=== PATIENT | female | born 1940 | race Caucasian/White ===

== ENCOUNTER 2016-10-14 08:56 | Emergency (ER) | payer MEDICARE, OTHER ==
[2016-10-14 09:33] LABS: BASOPHILS 0.3 % (0.0-2.0); EOSINOPHILS 0.1 % (0.0-6.0); HEMATOCRIT 40.5 % (36.0-48.0); HEMOGLOBIN 13.7 g/dL (12.0-16.0); LYMPHOCYTES 13.8 % (20.0-40.0); LYMPHOCYTES# 0.7 X 10^3uL (0.8-3.8); MEAN CELL VOLUME 91.9 fL (80.0-100.0); MEAN CORPUS. HGB CONCENTRATION 33.8 g/dL (32.0-36.0); MEAN CORPUSCULAR HEMOGLOBIN 31.1 pg (29.0-35.0); MEAN PLATELET VOLUME 8.7 fL (7.4-10.4); MONOCYTES 8.1 % (2.0-10.0); MONOCYTES# 0.4 X 10^3uL (0.2-1.0); NEUTROPHILS# 3.9 X 10^3uL (2.6-6.7); PLATELET COUNT 159 X 10^3uL (130-440); RED CELL DISTRIBUTION WIDTH 13.5 % (11.5-14.5)
[2016-10-14 09:39] LABS: NEUTROPHILS 77.7 % (54.0-75.0)
[2016-10-14 09:48] LABS: ALBUMIN 4.3 g/dL (3.5-5.0); ALKALINE PHOSPHATASE 70 U/L (38-126); ALT 26 U/L (9-52); AST 27 U/L (14-36); BILIRUBIN, TOTAL 0.8 mg/dL (0.2-1.3); BLOOD UREA NITROGEN 21 mg/dL (7-17); CALCIUM 10.8 mg/dL (8.4-10.2); CHLORIDE 101 mmol/L (98-107); EST GLOMERULAR FILTRATION RATE > 60 mL/min; GLUCOSE 93 mg/dL (70-100); LIPASE 158 U/L (23-300); POTASSIUM 4.2 mmol/L (3.5-5.1); SODIUM 136 mmol/L (137-145); TOTAL PROTEIN 7.5 g/dL (6.3-8.2)
[2016-10-14] MEDS ORDERED: ONDANSETRON HCL 4 MG/2 ML VIAL ONE (09:52)
[2016-10-14] MEDS ORDERED: NORMAL SALINE 500 ML IV ONE (09:52)
--- NOTE | 2016-10-14 11:42 | CT REPORT ---
HISTORY: Abdominal pain. COMPARISON: None. TECHNIQUE: This examination was performed using automated exposure control, adjustment of mA or kV according to patient size, and/or use of iterative reconstruction technique. Axial contiguous images of the abdome n and pelvis were obtained without oral or IV contrast, coronal reformat images also performed. FINDINGS: LUNGS: There are dependent airspace opacities in the lower lobes bilaterally, most consistent with nava bsegmental atelectasis. The heart is enlarged. There is a large hiatal hernia. Hepatobiliary:No focal hepatic lesions are seen. The portal vein enhances normally. There is no intra hepatic biliary ductal dilatation. The gallbladder is incompletely distended. Spleen: Normal in size and radiographic appearance. Pancreas: No focal pancreatic lesion or pancreatic ductal dilatation. Adrenals:Unremarkable. Kidneys: The kidneys are normal in size bilaterally. There is no evidence of hydroureteronephrosis or renal/ureteral calculus. There are 2 discrete left renal cortical cysts measuring up to 1.9 cm in si ze. Peritoneum: There is no evidence of free fluid or free air. There is diastases of the rectus abdomini s, without evidence of abdominal wall hernia. Vessels: Moderate atherosclerotic disease affects abdominal aorta and its branches. The IVC appears u nremarkable. Lymph nodes: There is no lymphadenopathy. Bowel: The stomach is incompletely distended. The small bowel appears unremarkable. The appendix is a bsent, consistent with prior appendectomy . There is well-formed stool throughout the colon. There is diverticulosis of the sigmoid and descending colon without CT evidence of diverticulitis. No focal b owel wall thickening is seen. Pelvis: The bladder appears unremarkable, without intraluminal mass or calculus. There is a small foc us of gas within the bladder which may reflect recent instrumentation or less likely underlying cysti tis. The uterus and ovaries are absent. Bones: There are degenerative changes noted in the spine. There is vertebral deformity of the T8, T12 and L2 vertebral bodies suggesting old compression fracture. No blastic or lytic lesions are identif ied. There are healed fractures of the visualized superior pubic rami bilaterally, old, variably heal ed fractures of the left L1, L2, L3 and L4 transverse processes and multiple healed right-sided rib f ractures. No acute rib fracture is seen. The soft tissues appear unremarkable. IMPRESSION: 1. Diverticulosis of the colon without CT evidence of diverticulitis. 2. Air within the bladder may reflect recent instrumentation. Underlying cystitis is considered less likely. Correlation with patient history and urinalysis is recommended. 3. No evidence of renal or ureteral calculus. 4. Large hiatal hernia. Final Electronic Signature: This report was electronically signed by Samuel Newman MD on 10/15/19 17 11:40 AM. shira /
[2016-10-14 11:48] LABS: URINE MUCUS NONE SEEN (Up to 25%); URINE WBC NONE SEEN (0-4/hpf)
[2016-10-14 11:59] LABS: URINE APPEARANCE CLEAR; URINE COLOR YELLOW; URINE LEUKOCYTE ESTERASE NEGATIVE (NEGATIVE); URINE NITRITE NEGATIVE (NEGATIVE); URINE SPECIFIC GRAVITY 1.015 (0.001-1.035)
[2016-10-14 12:00] LABS: URINE BACTERIA NONE SEEN (<10/hpf); URINE BILIRUBIN NEGATIVE (NEGATIVE); URINE BLOOD 10 Ery/uL (1+) (NEGATIVE); URINE GLUCOSE NORMAL (NEGATIVE); URINE KETONE NEGATIVE (NEGATIVE); URINE PROTEIN NEGATIVE (NEG - TRACE); URINE RBC 0-5/hpf (0-5/hpf); URINE SQUAMOUS EPITHELIAL CELL 0-5/hpf (<= 15/hpf); URINE UROBILINOGEN 0.2mg/dL (Normal) (NEG-1mg/dL)
[2016-10-14 12:01] LABS: URINE SPERM NONE SEEN
--- NOTE | 2016-10-14 12:09 | ER PHYSICIAN DOCUMENTATION ---
Physician Documentation [place] [facility] Name:Carri Blas Age:75 yrs Sex:Female :1940 Arrival Date:10/14/2016 Time:08:56 Bed4 Private MD: Livan Flower Disposition: 10/14 11:30 Chart complete. cd Disposition: 10/14/16 11:55 Discharged to Home/Self Care. Impression: Abdominal Pain, Unspecified, Dehydration, Bladder Infection (UTI) - : Possible, Culture pending. - Condition is Fair. - Discharge Instructions: BLADDER INFECTION, Female (Adult), DEHYDRATION (6y-Adult), Abdomen - ABDOMINAL PAIN, Unknown Cause, (Female). - Prescriptions for Macrodantin 100 mg Oral Capsule - take 1 capsule by ORAL route every 6 hours for 10 days; 40 capsule. Hydrocodone- Acetaminophen 5-325 mg Oral - take 1 tablet by ORAL route every 6 hours As needed; 12 tablet. - Medical Reconciliation form form. - Follow up: Alysa Roth MD; When: 2 - 3 days; Reason: Recheck today's complaints, Continuance of care. - Problem is new. - Symptoms have improved. - Notes: Drink 1 - 2 quarts of water every day to stay hydrated. TAke MAcrodantin 100mg by mouth every 6 hours for 10 days. Follow up with Dr. Roth (or covering physician) in 2 - 3 days for recheck. Take Hydrocodone 1 tab by mouth with food every 6 hours as needed for pain... HPI: 09:00 This 75 yrs old Female presents to ER via Private Vehicle with complaints of cd Abdominal Pain. 09:00 The patient presents with abdominal pain right lower quadrant. Onset: The cd symptoms/episode began/occurred gradually, 3 day(s) ago. The symptoms do not radiate. Associated signs and symptoms: Pertinent positives: anorexia, nausea, Pertinent negatives: constipation, diarrhea, dysuria, fever, shortness of breath, vomiting, vomiting blood. The symptoms are described as achy, constant. Severity of pain: At its worst the pain was moderate in the emergency department the pain is unchanged. Risk factors for AAA: none. The patient has not experienced similar symptoms in the past. Historical: - Allergies: Amitriptyline; - Home Meds: 1. losartan oral 2. areds2 3. tolterodine oral 4. Keppra Oral 5. pramipexole oral 6. Aspirin Oral 7. Vayacog oral 8. Estradiol Oral 9. Simvastatin Oral 10. pantoprazole oral 11. Hyoscyamine Sulfate SL 12. Atenolol Oral - PMHx: RENAL DISEASE; DIVERTICULITIS; ATRIAL FIB; aortic valve disorder; seizure disorder; ANXIETY; pulmonary embolism; hyperparathyroidism; polymyalgia rhuematica; pulminary hypertention; - PSHx: small bowel resection; KNEE SURGERY; HYSTERECTOMY; TONSILLECTOMY; - Tetanus: unknown. - Ebola Screening: : Patient denies exposure to infectious person. Patient denies travel to an Ebola-affected area in the 21 days before illness onset. . - Social history: Smoking status: unknown if patient ever smoked tobacco. ROS: 09:00 ENT: Negative for injury, pain, epistaxis and discharge. cd Neck: Negative for injury, pain, stiffness and swelling. Cardiovascular: Negative for chest pain, palpitations, edema and pleuritic pain. Respiratory: Negative for shortness of breath, dyspnea on exertion, cough, sputum production, wheezing, hemoptysis and pleuritic chest pain. Back: Negative for injury, pain or muscle spasms. : Negative for injury, bleeding, discharge, dysuria, frequency, urgency and swelling. MS/Extremity: Negative for injury, deformity, edema, calf tenderness, pain or coldness. Skin: Negative for injury, rash, itching and discoloration. 09:00 Neuro: Negative for headache, weakness, numbness, tingling, and seizure. cd 09:00 Constitutional: Positive for poor PO intake, Negative for chills, fever. 09:00 Abdomen/GI: Positive for abdominal pain, nausea, anorexia, Negative for vomiting, diarrhea, constipation, abdominal distension, hematemesis, black/tarry stool, rectal bleeding. 09:00 All other systems are negative. Exam: Head/Face: Normocephalic, atraumatic. ENT: Nares patent. No nasal discharge, no septal abnormalities noted. Tympanic membranes are normal and external auditory canals are clear. Oropharynx with no redness, swelling, or masses, exudates, or evidence of obstruction, uvula midline. Mucous membranes dry Neck: Trachea midline, no thyromegaly or masses palpated, and no cervical lymphadenopathy. Supple, full range of motion without nuchal rigidity, or vertebral point tenderness. No Meningismus. Chest/axilla: Normal chest wall appearance and motion. Nontender with no deformity. No lesions are appreciated. Back: No spinal tenderness. No costovertebral tenderness. Full range of motion. Skin: Warm, dry with normal turgor. Normal color with no rashes, no lesions, and no evidence of cellulitis. MS/ Extremity: Pulses equal, no cyanosis. Neurovascular intact. Full, normal range of motion. 09:15 Neuro: Awake and alert, GCS 15, oriented to person, place, time, and situation. cd Cranial nerves II-XII grossly intact. Motor strength 5/5 in all extremities. Sensory grossly intact. Cerebellar exam normal. Normal gait. 09:15 Constitutional: The patient appears alert, awake, non-diaphoretic, non-toxic, well developed, well nourished, in obvious distress, mildly distressed. 09:15 Cardiovascular: Rate: bradycardic, Rhythm: regular, Pulses: no pulse deficits are appreciated, Heart sounds: normal, Edema: is not appreciated. 09:15 Respiratory: the patient does not display signs of respiratory distress, Respirations: normal, no acute changes, Breath sounds: are normal, clear throughout. 09:15 Abdomen/GI: Inspection: abdomen appears normal, Bowel sounds: active, Palpation: mild abdominal tenderness, in the right lower quadrant, mass, is not appreciated, rebound tenderness, is not appreciated, voluntary guarding, is not appreciated, involuntary guarding, is not appreciated, no appreciated organomegaly, Indicators: McBurney's point is not tender, Wilson's sign is negative, Patient reports she has had a SBO in the past and had 8 cm of small bowel and her appendix removed. She has not had a SBO since that time.. Vital Signs: 09:25 BP 201 / 79 (auto/); st 09:29 Pulse 53; Temp 98.2; Pulse Ox 95% ; Pain 6/10; st 09:58 Pain 4/10; st 10:04 BP 196 / 77 (auto/); st 10:04 Pulse 59; Pulse Ox 91% ; st 11:15 BP 179 / 61 (auto/); st 11:19 Pulse 54; Pulse Ox 96% ; st 11:30 BP 179 / 68 (auto/); st 11:34 Pulse 53; Pulse Ox 97% ; Pain 0/10; st 11:34 pt has pain with movment. st [place] Coma Score: 09:15 Eye Response: spontaneous(4). Verbal Response: oriented(5). Motor Response: obeys cd commands(6). Total: 15. MDM: 09:05 Data interpreted: Pulse oximetry: on room air is 97 %. Interpretation: normal. cd 09:15 Differential diagnosis: bowel obstruction, cholecystitis, Cholelithiasis, cd diverticulitis, Irritable bowel syndrome, Mesenteric ischemia or infarction, non-specific abd pain, pancreatitis, Pyelonephritis, Ureterolithiasis, urinary tract infection. 09:29 Patient medically screened. cd 11:30 Counseling: I had a detailed discussion with the patient and/or guardian regarding: the cd historical points, exam findings, and any diagnostic results supporting the discharge/admit diagnosis, lab results, radiology results, the need for outpatient follow up, for a recheck, with the patient's primary care provider, to return to the emergency department if symptoms worsen or persist or if there are any questions or concerns that arise at home. Response to treatment: the patient's symptoms have resolved after treatment, the patient's pain is gone, the patient's condition has returned to base line, the patient is now symptom free, patient is well hydrated. and as a result, I will discharge patient. 11:45 Data reviewed: vital signs, nurses notes, old medical records, lab test result(s), cd radiologic studies, CT scan, and as a result, I will discharge patient, administer IV fluids, NS bolus, NS maintenence, prescribe pain medication, Dilaudid. 10/14 09:40 Order name: CBC AUTO DIF, MDIF/RMOR IF IND; Complete Time: 10:21 EDMS 10/14 10:21 Interpretation: Normal. 10/14 09:49 Order name: BASIC METABOLIC PANEL; Complete Time: 10:21 EDMS 10/14 10:21 Interpretation: Normal. 10/14 09:49 Order name: HEPATIC PANEL; Complete Time: 10:21 EDMS 10/14 10:21 Interpretation: Normal. 10/14 09:49 Order name: LIPASE; Complete Time: 10:21 EDMS 10/14 10:21 Interpretation: Normal. 10/14 12:01 Order name: UA W/ MICRO -CULTURE IF IND; Complete Time: 12:03 EDMS 10/14 12:03 Interpretation: Normal Except: Hematuria. cd 10/14 11:44 Order name: CAT SCAN; ABD/[place] [id number]; Complete Time: 12:03 EDMS 10/15 16:20 Interpretation: Normal Except: Small amt of air in the bladder. Diverticulosis. Large cd HH See Rad Report. 10/14 11:27 Order name: Oxygen; Complete Time: 11:27 st Dispensed Medications: 09:43 Drug: NS 0.9% 500 ml; Route: IV; Rate: bolus; Site: left forearm; st 11:02 Follow up: IV Status: Completed infusion; IV Intake: 500ml st 09:43 Not Given (Patient Refused): Zofran 4 mg IVP once over [address] 09:43 Drug: Dilaudid 0.5 mg; Route: IVP; Site: left forearm; st 09:58 Follow up: Response: Pain is decreased st 10:28 Drug: Dilaudid 0.25 mg; Route: IVP; Site: left forearm; st 12:08 Follow up: Response: Pain is decreased st Point of Care Testing: Urine Dip: 10:29 pH: 5.0; ; Specific [place]: 1.005; Ketones: Negative; Glucose: Negative; Protein: st Negative; Leukocytes: Negative; Nitrite: Negative ; Blood: Small (+); Bilirubin: Negative ; Urobilinogen: Normal Signatures: Asha Ruiz, Livan Luther RN, MD MD cd
--- NOTE | 2016-10-14 12:09 | ER NURSING DOCUMENTATION ---
Nurse's Notes [facility] Name:Carri Blas Age:75 yrs Sex:Female :1940 Arrival Date:10/14/2016 Time:08:56 Bed4 Private MD: Diagnosis:Abdominal Pain, Unspecified;Dehydration;Bladder Infection (UTI)-: Possible, Culture pending Presentation: 10/14 08:59 Acuity: MARYBETH 3 st 09:20 Presenting complaint: Patient states: Pt has had RLQ pain for a few days that is st getting worst. Transition of care: Home. 09:20 Method Of Arrival: Private Vehicle st Triage Assessment: 09:00 General: Appears uncomfortable, Behavior is cooperative. Pain: Complains of pain in st right lower quadrant Pain currently is 6 out of 10 on a pain scale. Pain began 2-3 days ago Aggravated by movement. Cardiovascular: No deficits noted. Respiratory: No deficits noted. GI: Abdomen is flat, non- distended Abd is soft X 4 quads Abdomen is tender to palpation in suprapubic area. Historical: - Allergies: Amitriptyline; - Home Meds: 1. losartan oral 2. areds2 3. tolterodine oral 4. Keppra Oral 5. pramipexole oral 6. Aspirin Oral 7. Vayacog oral 8. Estradiol Oral 9. Simvastatin Oral 10. pantoprazole oral 11. Hyoscyamine Sulfate SL 12. Atenolol Oral - PMHx: RENAL DISEASE; DIVERTICULITIS; ATRIAL FIB; aortic valve disorder; seizure disorder; ANXIETY; pulmonary embolism; hyperparathyroidism; polymyalgia rhuematica; pulminary hypertention; - PSHx: small bowel resection; KNEE SURGERY; HYSTERECTOMY; TONSILLECTOMY; - Tetanus: unknown. - Ebola Screening: : Patient denies exposure to infectious person. Patient denies travel to an Ebola-affected area in the 21 days before illness onset. . - Social history: Smoking status: unknown if patient ever smoked tobacco. Screenin:06 Infectious Disease Risk None. Abuse screen: Denies threats or abuse. Denies injuries st from another. pt feels safe at home. Nutritional screening: No deficits noted. Assessment: 09:58 General: pt resting quietly.. st Vital Signs: 09:25 BP 201 / 79 (auto/); st 09:29 Pulse 53; Temp 98.2; Pulse Ox 95% ; Pain 6/10; st 09:58 Pain 4/10; st 10:04 BP 196 / 77 (auto/); st 10:04 Pulse 59; Pulse Ox 91% ; st 11:15 BP 179 / 61 (auto/); st 11:19 Pulse 54; Pulse Ox 96% ; st 11:30 BP 179 / 68 (auto/); st 11:34 Pulse 53; Pulse Ox 97% ; Pain 0/10; st 11:34 pt has pain with movment. st [place] Coma Score: 09:15 Eye Response: spontaneous(4). Verbal Response: oriented(5). Motor Response: obeys cd commands(6). Total: 15. ED Course: 08:58 Patient arrived in ED. ds 08:59 Triage completed. rh 09:18 Asha Ruiz, RN is Primary Nurse. st 09:25 Inserted peripheral IV: 20 gauge in left forearm. st 09:29 Livan Pierson MD is Attending Physician. cd 11:27 Oxygen Oxygen administration via nasal cannula @ 2L/min. st 11:54 Alysa Roth MD is Referral Physician. cd 13:06 Valuables Remains with patient Patient has correct armband on for positive st identification. Placed in gown. Bed in low position. Pulse Ox - RN Monitoring Only NIBP On - RN Monitoring Only. Warm blanket given. Administered Medications: 09:43 Drug: NS 0.9% 500 ml; Route: IV; Rate: bolus; Site: left forearm; st 11:02 Follow up: IV Status: Completed infusion; IV Intake: 500ml st 09:43 Not Given (Patient Refused): Zofran 4 mg IVP once over [address] 09:43 Drug: Dilaudid 0.5 mg; Route: IVP; Site: left forearm; st 09:58 Follow up: Response: Pain is decreased st 10:28 Drug: Dilaudid 0.25 mg; Route: IVP; Site: left forearm; st 12:08 Follow up: Response: Pain is decreased st Point of Care Testing: Urine Dip: 10:29 pH: 5.0; ; Specific [place]: 1.005; Ketones: Negative; Glucose: Negative; Protein: st Negative; Leukocytes: Negative; Nitrite: Negative ; Blood: Small (+); Bilirubin: Negative ; Urobilinogen: Normal Intake: 11:02 IV: 500ml; Total: 500ml. Outcome: 11:55 Discharge ordered by . [place] 12:06 Discharged to home ambulatory. st 12:06 Condition: improved 12:06 Discharge instructions given to patient, Instructed on discharge instructions, follow up and referral plans. medication usage, Prescriptions given X 2. 12:08 [address] the ED[address] st 10/15 17:34 Discharge F/U Call: Spoke with: patient. Have you filled your prescriptions? yes. Did nf your discharge instructions answer all of your questions? yes Further F/U necessary? None needed Signatures: Asha Ruiz, RN RN Tea Vazquez RN RN nf Srot, Renetta, Reg Livan Phillips MD MD cd [place], Jackie Sim
== END 2016-10-14 12:09 | disposition home or self-care (01) ==
LOC: ER 08:56
DX: R10.31 Right lower quadrant pain (principal); E86.0 Dehydration; R31.9 Hematuria, unspecified; R11.0 Nausea; R00.1 Bradycardia, unspecified; K57.30 Diverticulosis of large intestine without perforation or abscess without bleeding; K44.9 Diaphragmatic hernia without obstruction or gangrene; I48.91 Unspecified atrial fibrillation; Z79.82 Long term (current) use of aspirin; Z79.899 Other long term (current) drug therapy
CPT/HCPCS: 74176; 80048; 80076; 81001; 83690; 85025; 96361; 96374; 96376; 99284; 99285; J1170; J2405; J7040